=== PATIENT | female | born 2000 | race Caucasian/White ===

== ENCOUNTER 2021-01-14 07:25 | Emergency (ER) | payer OTHER ==
[~2021-01-14] VITALS: Ht 162.6 cm; Wt 67.1 kg
--- NOTE | 2021-01-14 07:43 | NUR ---
PT C/O DRY, PRODUCTIVE COUGH TIMES 3 DAYS THAT IS PREVENTING HER FROM SLEEPING. PT STATES SHE GETS THIS AT THE CHANGING OF THE SEASONS, BUT OVER THE COUNTER MEDICINES ARE NOT WORKING THIS TIME. PT DENIES ANY OTHER SYMPTOMS OTHER THAN THE COUGH.
[2021-01-14 08:55] VITALS: BP 118/76
--- NOTE | 2021-01-14 08:57 | NUR ---
PT REC'VD DISCHARGE INSTRUCTIONS AND EDUCAITON. PT HAD NO FURTHER QUESTIONS. PT AMBULATED TO DC AREA, STEADY GAIT.
== END 2021-01-14 08:59 | disposition home or self-care (01) ==
LOC: ED 08:09
DX: J45.909 Unspecified asthma, uncomplicated (principal); R05 Cough; R07.89 Other chest pain; F17.200 Nicotine dependence, unspecified, uncomplicated
CPT/HCPCS: 71045; 99283